=== PATIENT | male | born 1955 | race Caucasian/White ===

== ENCOUNTER 2020-11-11 10:35 | Emergency (ER) | payer BC, OTHER ==
[~2020-11-11] VITALS: Ht 188 cm; Wt 92.4 kg
[2020-11-11 12:23] LABS: BASO # 0.1 10^3/uL (0.0-0.2); BASO % 0.8 % (0.0-1.0); EOS # 0.4 10^3/uL (0.0-0.5); EOS % 4.6 % (0.0-3.0); HEMATOCRIT 48.5 % (42.0-52.0); LYMPH # 2.3 10^3/uL (1.5-5.0); LYMPH % 29.3 % (24.0-44.0); MEAN CORPUSCULAR HEMOGLOBIN 31.7 pg (27.0-33.0); MEAN CORPUSCULAR HGB CONC 35.1 g/dl (32.0-36.5); MEAN CORPUSCULAR VOLUME 90.5 fl (80.0-96.0); MONO # 0.6 10^3/uL (0.0-0.8); MONO % 7.7 % (2.0-8.0); NEUTROPHILS # 4.5 10^3/uL (1.5-8.5); NEUTROPHILS % 57.2 % (36.0-66.0); PLATELET COUNT, AUTOMATED 199 10^3/uL (150-450); RED BLOOD COUNT 5.36 10^6/uL (4.30-6.10); WHITE BLOOD COUNT 7.8 10^3/uL (4.0-10.0)
[2020-11-11] MEDS ORDERED: hydrALAZINE 20MG/ML 1ML VIAL (J0360 PER 20MG) IV ONE (12:35)
--- NOTE | 2020-11-11 12:41 | REPVR ---
PROCEDURE INFORMATION: Exam: CT Head Without Contrast Exam date and time: 11/11/2020 12:31 PM Age: 65 years old Clinical indication: Pain; Headache; Additional info: HTN, headaches TECHNIQUE: Imaging protocol: Computed tomography of the head without contrast. Radiation optimization: All CT scans at this facility use at least one of these dose optimization techniques: automated exposure control; mA and/or kV adjustment per patient size (includes targeted exams where dose is matched to clinical indication); or iterative reconstruction. COMPARISON: No relevant prior studies available. FINDINGS: Brain: There is no acute intracranial hemorrhage. No extra-axial fluid collection. No evidence of acute infarct. Anne white differentiation is intact. There is no evidence of mass. There is no mass effect or midline shift. Cerebral ventricles: No ventriculomegaly. Paranasal sinuses: There is mucosal thickening at right sphenoid ethmoidal recess with minimal retained secretions in posterior right sphenoid sinus. Mastoid air cells: No significant mastoid effusion. Bones/joints: No acute fracture. Soft tissues: Unremarkable as visualized. IMPRESSION: No evidence of acute intracranial abnormality. No acute hemorrhage. No evidence of acute infarct or mass. Electronically signed by: Charito Akhtar On 11/11/2020 12:40:21 PM
--- NOTE | 2020-11-11 13:23 | REP ---
INDICATION: HTN. COMPARISON: None. TECHNIQUE: Portable FINDINGS: The technique utilized in obtaining the radiograph has magnified the cardiac silhouette and accentuated the interstitial markings. The superior mediastinal structures are midline. The cardiac silhouette is unremarkable in size, shape, and position. The diaphragmatic surfaces of the lungs are regular, and the costophrenic angles are clear. The pulmonary escalera are clear. The imaged osseous structures are intact. IMPRESSION: There is no acute cardiopulmonary disease. <Electronically signed by Andrea Bower > 11/11/20 [id number]
[2020-11-11] MEDS ORDERED: VALSARTAN 80 MG TAB (DIOVAN) PO ONE (14:00)
[2020-11-11 16:25] VITALS: BP 208/104
[2020-11-11] MEDS ORDERED: **hydrALAZINE** 50 MG TAB PO ONE (16:30)
[2020-11-11] MEDS ORDERED: IBUPROFEN 600MG TAB PO ONE (16:45)
[2020-11-11] MEDS ORDERED: VALS1TAB68 PO (18:27)
[2020-11-11] MEDS ORDERED: AMLO10TA PO (18:27)
--- NOTE | 2020-11-11 20:29 | ECGEPIP ---
[facility] [place] - ED Test Date: 2020-11-11 Pat Name: REGINALDO HAUSER Department: Room: - Gender: Male Area Attendant: : 1955 Requested By: Rafael Crandall Order Number: [id number] Reading MD: Janee Rockwell Measurements Intervals [place] Rate: 64 P: 66 CO: 158 QRS: -13 QRSD: 98 T: 47 QT: 412 QTc: 425 Interpretive Statements Normal sinus rhythm Possible Left atrial enlargement Septal infarct , age undetermined NSTTW abnormalities No prior Electronically Signed on 11-11-2020 20:29:30 EDT by Janee Rockwell
== END 2020-11-11 18:35 | disposition left against medical advice (07) ==
LOC: M ED 10:35
DX: I16.0 Hypertensive urgency (principal); Z91.19 Patient's noncompliance with other medical treatment and regimen; E78.5 Hyperlipidemia, unspecified; Z79.899 Other long term (current) drug therapy
CPT/HCPCS: 36415; 70450; 71045; 80047; 85025; 93005; 96374; 99284; J0360

== ENCOUNTER → 2020-12-10 | Outpatient (CLI) | payer OTHER ==
[~2020-12-10] MED LIST: AMLO10TA PO; CHLO125TA PO; DICL1GEL3 TOP; NAPR500T6 PO; PROAAER10 INH; VALS1TAB68 PO; VITMTA PO
== END ==
LOC: M SLEEP HO 10:21
PROVIDERS: ATTEND Internal Medicine Cardiovascular Disease
DX: R06.83 Snoring (principal)

== ENCOUNTER → 2021-02-09 | Outpatient (CLI) | payer OTHER ==
--- NOTE | 2021-02-09 12:41 | REP ---
INDICATION: RT KNEE CHONDROCALCINOSIS. COMPARISON: None. TECHNIQUE: 2 x 2 mm increments using helical technique through the right hip with 3 x 3 mm increments using helical CT through the right knee and right ankle. Wilian protocol utilized. Sagittal and coronal reconstructions also obtained FINDINGS: At the hip: There is mild to moderate slightly asymmetric right hip joint space narrowing with mild subchondral sclerosis. There are no mariana subchondral cysts. There is minimal femoral head marginal osteophytosis. There is no acute fracture, dislocation or subluxation. At the knee: There is tricompartmental marginal osteophytosis with moderate to severe medial compartmental narrowing with mild to moderate asymmetric patellofemoral joint space narrowing. There is medial compartmental subchondral sclerosis. There is no mariana subchondral cyst formation. There is no evidence of an acute fracture, dislocation or subluxation. At the ankle: There is asymmetric narrowing involving all 3 subtalar joint with slight marginal osteophyte formation. Marginal osteophytes are seen arising from the tibia and talus at the tibiotalar joint there is a smoothly marginated well corticated ossific density within the lateral sinus tarsi. This measures 1.5 x 0.6 x 0.6 cm. There is no acute fracture, dislocation, or subluxation. Plantar and retrocalcaneal heel spurs are identified. 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 <Electronically signed by Andrea Bower > 02/09/21 [id number]
== END ==
LOC: M RAD 11:02
PROVIDERS: ATTEND Orthopaedic Surgery Adult Reconstructive Orthopaedic Surgery
DX: M11.261 Other chondrocalcinosis, right knee (principal)

== ENCOUNTER → 2021-02-22 | Outpatient (CLI) | payer OTHER | LOC: M PT 12:44 | PROVIDERS: ATTEND Orthopaedic Surgery Adult Reconstructive Orthopaedic Surgery | DX: M11.261 Other chondrocalcinosis, right knee (principal); Z20.822 Contact with and (suspected) exposure to COVID-19 | CPT/HCPCS: 97161; 97530; U0002 ==

== ENCOUNTER → 2021-02-22 | Outpatient (CLI) | payer OTHER | LOC: M LABSMTC 10:30 | PROVIDERS: ATTEND Anesthesiology | DX: Z01.812 Encounter for preprocedural laboratory examination (principal); Z20.822 Contact with and (suspected) exposure to COVID-19 ==